=== PATIENT | female | born 1985 | race African-American/Black ===

== ENCOUNTER 2022-07-17 11:18 | Emergency (ER) | payer MEDICAID, OTHER ==
[~2022-07-17] VITALS: Ht 162.6 cm; Wt 67.0 kg
[2022-07-17] MEDS ORDERED: IBUPROFEN 600MG TABLET PO STA (12:16)
[2022-07-17] MEDS ORDERED: CYCLOBENZAPRINE 10MG TABLET PO ONE (12:30)
[2022-07-17 13:33] VITALS: BP 136/86
[2022-07-17] MEDS ORDERED: CYCL5TAB PO (13:51)
[2022-07-17] MEDS ORDERED: NAPR-681 PO (13:51)
== END 2022-07-17 14:34 | disposition home or self-care (01) ==
LOC: ER 11:46
DX: S73.101A Unspecified sprain of right hip, initial encounter (principal); X50.0XXA Overexertion from strenuous movement or load, initial encounter; X50.9XXA Other and unspecified overexertion or strenuous movements or postures, initial encounter; Y93.89 Activity, other specified; Y92.89 Other specified places as the place of occurrence of the external cause; Y99.8 Other external cause status
CPT/HCPCS: 71045; 73502; 81025; 99284